=== PATIENT | female | born 1990 | race Two or more races ===

== ENCOUNTER → 2023-10-05 | Outpatient (CLI) | payer BC ==
--- NOTE | 2023-10-06 08:16 | XR ---
EXAMINATION TYPE: XR foot complete 3 views LT DATE OF EXAM: 10/05/2023 Comparison: None Clinical History: 33-year-old female M79.672 PAIN IN LEFT FOOT Findings: The second toe ring is present. A type II accessory navicular noted. Small plantar heel spur. There m ay be some slight thickening at the origin of the plantar fascia near. No acute fracture, subluxation , dislocation. Impression: 1. Small plantar heel spur. Some possible slight thickening at the origin of the plantar fascia here ; correlate for any focal pain. 2. 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
== END | disposition home or self-care (01) ==
LOC: RADXRMAIN 17:20
PROVIDERS: ATTEND Family Medicine
DX: M77.32 Calcaneal spur, left foot (principal); Q74.2 Other congenital malformations of lower limb(s), including pelvic girdle

== ENCOUNTER 2024-09-09 23:29 | Emergency (ER) | payer BC ==
--- NOTE | 2024-09-09 23:51 | ED ---
General Adult HPI - General Chief complaint: ENT Stated complaint: Sore throat Time Seen by Provider: 09/09/24 23:37 Source: patient, family, EMS, RN notes reviewed, old records reviewed Mode of arrival: EMS Limitations: no limitations - History of Present Illness Initial comments: 34-year-old female presenting for evaluation of sore throat. Patient was diagnosed with strep pharyngitis today and took her initial dose of amoxicillin. She has had chills. She states she has difficult time swallowing secondary to pain. Patient felt somewhat lightheaded prior to arrival and did call EMS for transport to the emergency department. She states that the sensation that she cannot swallow due to pain is making her feel short of breath. No central chest pain. No vomiting. - Related Data Allergies Allergy/AdvReac Type Severity Reaction Status Date / Time No Known Allergies Allergy Verified 09/09/24 23:34 Review of Systems ROS Statement: Those systems with pertinent positive or pertinent negative responses have been documented in the HPI. ROS Other: All systems not noted in ROS Statement are negative. Past Medical History Past Medical History: No Reported History History of Any Multi-Drug Resistant Organisms: None Reported Past Surgical History: No Surgical Hx Reported Past Psychological History: No Psychological Hx Reported Smoking Status: Never smoker Past Alcohol Use History: None Reported Past Drug Use History: None Reported General Exam Limitations: no limitations General appearance: alert, in no apparent distress Head exam: Present: atraumatic, normocephalic Eye exam: Present: normal appearance, PERRL ENT exam: Absent: normal oropharynx (Pharyngeal erythema) Neck exam: Present: lymphadenopathy Respiratory exam: Present: normal lung sounds bilaterally. Absent: respiratory distress, wheezes Cardiovascular Exam: Present: regular rate, normal rhythm GI/Abdominal exam: Present: soft. Absent: distended, tenderness, guarding Extremities exam: Present: normal inspection, normal capillary refill Neurological exam: Present: alert, oriented X3, CN II-XII intact. Absent: motor sensory deficit Skin exam: Present: warm, dry, intact Course Vital Signs 09/09/24 09/10/24 23:35 01:03 Temperature 99.0 F 99.2 F Pulse Rate 111 H 104 H Respiratory 18 20 Rate Blood Pressure 109/70 116/70 O2 Sat by Pulse 100 100 Oximetry Medical Decision Making - Medical Decision Making Was pt. sent in by a medical professional or institution (Dr., PA, [facility] [facility], urgent care, hospital, or group home...) When possible be specific @ -No Did you speak to anyone other than the patient for history (EMS, parent, family, police, friend...)? What history was obtained from this source @ -No Did you review nursing and triage notes (agree or disagree)? Why? @ -I reviewed and agree with nursing and triage notes Were old charts reviewed (outside hosp., previous admission, EMS record, old EKG, old radiological studies, urgent care reports/EKG's, group home records)? Report findings @ -No old charts were reviewed Differential sore throat: Strep pharyngitis, peritonsillar abscess, retropharyngeal abscess, will viral pharyngitis, mononucleosis EKG interpreted by me (3pts min.). @Sinus tachycardia rate of 116, ME interval 132, QRS duration 94, QTc [address] segment elevation. Left ventricular hypertrophy X-rays interpreted by me (1pt min.). @ -None done CT interpreted by me (1pt min.). @ -None done U/S interpreted by me (1pt. min.). @ -None done What testing was considered but not performed or refused? (CT, X-rays, U/S, labs)? Why? @ -None What meds were considered but not given or refused? Why? @ -None Did you discuss the management of the patient with other professionals (professionals i.e. , PA, [facility], lab, RT, psych nurse, forensic social worker, pricing associate, teacher, information technology officer, insurance case manager)? Give summary @ -No Was smoking cessation discussed for >3mins.? @ -No Was critical care preformed (if so, how long)? @ -No Were there social determinants of health that impacted care today? How? (Homelessness, low income, unemployed, alcoholism, drug addiction, transportation, low edu. Level, literacy, decrease access to med. care, long term, rehab)? @ -No Was there de-escalation of care discussed even if they declined (Discuss DNR or withdrawal of care, Hospice)? DNR status @ -No What co-morbidities impacted this encounter? (DM, HTN, Smoking, COPD, CAD, Cancer, CVA, ARF, Chemo, Hep., AIDS, mental health diagnosis, sleep apnea, morbid obesity)? @ -None Was patient admitted / discharged? Hospital course, mention meds given and route, prescriptions, significant lab abnormalities, going to OR and other pertinent info. @ -[Diagnosis of strep throat presenting with sore throat, pain with swallowing, subjective fever and chills. Patient does have pharyngeal erythema without tonsillar exudate. There is no peritonsillar abscess. There is an ulceration on the right posterior oropharynx. Patient given Decadron and a dose of Unasyn as well as IV fluid in the emergency department. Laboratory studies including CBC and CMP were obtained unremarkable. Patient will continue oral medication as prescribed and follow-up with her primary care provider. Undiagnosed new problem with uncertain prognosis? @ -No Drug Therapy requiring intensive monitoring for toxicity (Heparin, Nitro, Ins ulin, Cardizem)? @ -No Were any procedures done? @ -No Diagnosis/symptom? @ -[Strep pharyngitis Acute, or Chronic, or Acute on Chronic? @Acute Uncomplicated (without systemic symptoms) or Complicated (systemic symptoms)? @ -Default Side effects of treatment? @ -No Exacerbation, Progression, or Severe Exacerbation? @ -No Poses a threat to life or bodily function? How? (Chest pain, [place], [place], pneumonia, PE, COPD, DKA, ARF, appy, cholecystitis, CVA, Diverticulitis, Homicidal, Suicidal, threat to staff... and all critical care pts) @ -No - Lab Data Result diagrams: 09/10/24 00:11 09/10/24 00:11 Lab Results 09/10/24 09/10/24 Range/Units 00:11 00:11 WBC 15.43 H (4.50-10.00) 10*3/uL RBC 4.46 (4.10-5.20) 10*6/uL Hgb 11.2 L (12.0-15.0) g/dL Hct 34.7 L (37.2-46.3) % MCV 77.8 L (80.0-97.0) fL MCH 25.1 L (27.0-32.0) pg MCHC 32.3 (32.0-37.0) g/dL Plt Count 160 (140-440) 10*3/uL MPV 12.0 (9.5-12.2) fL Immature Gran % (Auto) 0.5 % Neutrophils % 78.2 % Lymphocytes % 11.1 % Monocytes % 9.3 % Eosinophils % 0.6 % Basophils % 0.3 % Immature Gran # 0.07 H (0.00-0.04) 10*3/uL Neutrophils # 12.07 H (1.80-7.70) 10*3/uL Lymphocytes # 1.71 (0.90-5.00) 10*3/uL Monocytes # 1.44 H (0.20-1.00) 10*3/uL Eosinophils # 0.09 (0.04-0.35) 10*3/uL Basophils # 0.05 (0.00-0.10) 10*3/uL Sodium 137 (137-145) mmol/L Potassium 4.0 (3.5-5.1) mmol/L Chloride 108 H (98-107) mmol/L Carbon Dioxide 22 (22-30) mmol/L Anion Gap 7 mmol/L BUN 10 (7-17) mg/dL Creatinine 0.55 (0.52-1.04) mg/dL Est GFR (CKD-EPI)AfAm >90 (>60 ml/min/1.73 sqM) Est GFR (CKD-EPI)NonAf >90 (>60 ml/min/1.73 sqM) Glucose 117 H (74-99) mg/dL Calcium 8.7 (8.4-10.2) mg/dL Total Bilirubin 0.8 (0.2-1.3) mg/dL AST 22 (14-36) U/L ALT 9 (4-34) U/L Alkaline Phosphatase 44 (38-126) U/L Total Protein 7.0 (6.3-8.2) g/dL Albumin 4.0 (3.5-5.0) g/dL Disposition Clinical Impression: Strep pharyngitis Disposition: HOME SELF-CARE Condition: Fair Instructions (If sedation given, give patient instructions): Strep Throat (ED) Additional Instructions: Please continue antibiotics as prescribed Is patient prescribed a controlled substance at d/c from ED?: No Referrals: Suzette Hale MD [Primary Care Provider] - 1-2 days Time of Disposition: 00:49
[2024-09-10] MEDS: DEXAMETHASONE SOD PHOSPHATE 10 MG/ML 1 ML VIAL IVP STA (00:12)
[2024-09-10] MEDS: AMPICILLIN-SULBACTAM 3 GM in SODIUM CHLORIDE 0.9% 100 ML IVPB STA (00:13)
[2024-09-10] MEDS: LACTATED RINGERS 1,000 ML IV ONE (00:14)
[2024-09-10 00:22] LABS: Basophils # (A) 0.05 10*3/uL (0.00-0.10); Basophils % (A) 0.3 %; Eosinophils # (A) 0.09 10*3/uL (0.04-0.35); Eosinophils % (A) 0.6 %; HCT 34.7 % (37.2-46.3); HGB 11.2 g/dL (12.0-15.0); Lymphocytes # (A) 1.71 10*3/uL (0.90-5.00); Lymphocytes % (A) 11.1 %; MCH 25.1 pg (27.0-32.0); MCHC 32.3 g/dL (32.0-37.0); MCV 77.8 fL (80.0-97.0); Monocytes # (A) 1.44 10*3/uL (0.20-1.00); Monocytes % (A) 9.3 %; Neutrophils # (A) 12.07 10*3/uL (1.80-7.70); Neutrophils % (A) 78.2 %; Platelet Count 160 10*3/uL (140-440); RBC 4.46 10*6/uL (4.10-5.20); RDW 14.3 % (11.5-14.5); WBC 15.43 10*3/uL (4.50-10.00)
[2024-09-10 00:36] LABS: ALT 9 U/L (4-34); AST 22 U/L (14-36); African American GFR (CKD) >90 (>60 ml/min/1.73 sqM); Alkaline Phosphatase 44 U/L (38-126); Anion Gap 7 mmol/L; Blood Urea Nitrogen 10 mg/dL (7-17); Calcium 8.7 mg/dL (8.4-10.2); Carbon Dioxide 22 mmol/L (22-30); Chloride 108 mmol/L (98-107); Glucose 117 mg/dL (74-99); Non-African American GFR(CKD) >90 (>60 ml/min/1.73 sqM); Sodium 137 mmol/L (137-145); Total Bilirubin 0.8 mg/dL (0.2-1.3)
[2024-09-10 01:03] VITALS: BP 116/70; PULSE 104; RESP 20; TEMP 99.2
== END 2024-09-10 01:23 | disposition home or self-care (01) ==
LOC: EC 23:29
DX: J02.0 Streptococcal pharyngitis (principal)
CPT/HCPCS: 36415; 93005; 80053; 85025; 99284; 96365; 96375; J1100; J0295